=== PATIENT | female | born 1980 | race Caucasian/White ===

== ENCOUNTER → 2017-10-14 17:03 | Outpatient (CLI) | payer OTHER, MEDICAID, SELFPAY ==
[2017-10-14 18:00] LABS: Alanine Aminotransferase 25 IU/L (9-52); Albumin 4.1 g/dL (3.5-5.0); Albumin Globulin Ratio 1.5 (1.0-2.8); Alkaline Phosphatase 38 U/L (38-126); Aspartate Aminotransferase 19 IU/L (14-36); BUN Creatinine Ratio 18.6 (6-22); Bilirubin Total 0.5 mg/dL (0.2-1.3); Blood Urea Nitrogen 13 mg/dL (7-17); Calcium 9.3 mg/dL (8.4-10.2); Carbon Dioxide 28 mmol/L (22-32); Chloride 103 mmol/L (98-107); Estimated Glomerular Filt Rate > 60.0 mL/min (>60); Globulin 2.8 g/dL (1.7-4.1); Glucose 92 mg/dL (70-100); HEMOLYSIS < 15 (0-50); Potassium 4.3 mmol/L (3.4-5.1); Sodium 140 mmol/L (137-145); Total Protein 6.9 g/dL (6.3-8.2)
[2017-10-14 18:17] LABS: Free T3, Triiodothyronine Free 3.36 pg/mL (2.77-5.27); Free T4, Direct Thyroxine 1.21 ng/dL (0.78-2.19)
[2017-10-14 18:31] LABS: Thyroid Stimulating Hormone 0.55 uIU/mL (0.47-4.68)
[2017-10-16 15:21] LABS: Thyroglobulin Level 4.6 ng/mL (2.8-40.9); Thyroid Peroxidase Antibodies 1 IU/mL (< 9)
[2017-10-16 15:26] LABS: C Peptide 4.72 ng/mL (0.80-3.85)
== END ==
PROVIDERS: Family Provider Nurse Practitioner; PCP Nurse Practitioner; Visit Provider Internal Medicine Endocrinology, Diabetes & Metabolism
DX: E03.9 Hypothyroidism, unspecified (principal)
CPT/HCPCS: 36415; 80053; 84432; 84439; 84443; 84481; 84681; 86376

== ENCOUNTER → 2018-01-26 12:18 | Outpatient (CLI) | payer OTHER, MEDICAID, SELFPAY ==
[2018-01-26 13:38] LABS: Free T3, Triiodothyronine Free 3.03 pg/mL (2.77-5.27); T4 Total Thyroxine 8.75 ug/dL (5.5-11.0)
== END ==
PROVIDERS: Family Provider Nurse Practitioner; PCP Nurse Practitioner; Visit Provider Internal Medicine Endocrinology, Diabetes & Metabolism
DX: E03.9 Hypothyroidism, unspecified (principal)
CPT/HCPCS: 36415; 84436; 84443; 84481

== ENCOUNTER → 2018-02-01 12:00 | Outpatient (CLI) | payer OTHER, MEDICAID, SELFPAY ==
[2018-02-01 13:51] LABS: Alanine Aminotransferase 26 IU/L (9-52); Albumin 4.1 g/dL (3.5-5.0); Albumin Globulin Ratio 1.6 (1.0-2.8); Alkaline Phosphatase 38 U/L (38-126); Aspartate Aminotransferase 24 IU/L (14-36); Bilirubin Total 0.3 mg/dL (0.2-1.3); Blood Urea Nitrogen 21 mg/dL (7-17); Calcium 9.5 mg/dL (8.4-10.2); Carbon Dioxide 26 mmol/L (22-32); Chloride 104 mmol/L (98-107); Estimated Glomerular Filt Rate > 60.0 mL/min (>60); Globulin 2.6 g/dL (1.7-4.1); Glucose 93 mg/dL (70-100); HEMOLYSIS < 15 (0-50); Potassium 4.7 mmol/L (3.4-5.1); Sodium 141 mmol/L (137-145); Total Protein 6.7 g/dL (6.3-8.2)
[2018-02-01 14:04] LABS: Free T3, Triiodothyronine Free 2.93 pg/mL (2.77-5.27); Free T4, Direct Thyroxine 1.31 ng/dL (0.78-2.19)
[2018-02-01 17:13] LABS: Hemoglobin A1C% w Est Avg Glu 5.1 % (4.0-6.0)
[2018-02-03 15:53] LABS: C Peptide 2.17 ng/mL (0.80-3.85)
== END ==
PROVIDERS: PCP Nurse Practitioner; Visit Provider Internal Medicine Endocrinology, Diabetes & Metabolism
DX: E03.9 Hypothyroidism, unspecified (principal); E66.9 Obesity, unspecified
CPT/HCPCS: 36415; 80053; 83036; 84439; 84443; 84481; 84681

== ENCOUNTER → 2018-06-10 11:37 | Outpatient (CLI) | payer OTHER, MEDICAID, SELFPAY ==
[2018-06-10 12:06] LABS: Hemoglobin A1C% w Est Avg Glu 5.2 % (4.0-6.0)
[2018-06-10 12:09] LABS: Alanine Aminotransferase 27 IU/L (9-52); Albumin 4.4 g/dL (3.5-5.0); Albumin Globulin Ratio 1.4 (1.0-2.8); Alkaline Phosphatase 44 U/L (38-126); Aspartate Aminotransferase 23 IU/L (14-36); BUN Creatinine Ratio 26.7 (6-22); Bilirubin Total 0.4 mg/dL (0.2-1.3); Blood Urea Nitrogen 16 mg/dL (7-17); Calcium 8.9 mg/dL (8.4-10.2); Carbon Dioxide 27 mmol/L (22-32); Chloride 104 mmol/L (98-107); Estimated Glomerular Filt Rate > 60.0 mL/min (>60); Globulin 3.1 g/dL (1.7-4.1); Glucose 91 mg/dL (70-100); HEMOLYSIS < 15 (0-50); Potassium 4.3 mmol/L (3.4-5.1); Sodium 139 mmol/L (137-145); Total Protein 7.5 g/dL (6.3-8.2)
[2018-06-10 12:36] LABS: Free T3, Triiodothyronine Free 3.07 pg/mL (2.77-5.27); Free T4, Direct Thyroxine 1.05 ng/dL (0.78-2.19)
[2018-06-10 12:50] LABS: Thyroid Stimulating Hormone 3.06 uIU/mL (0.47-4.68)
[2018-06-12 19:37] LABS: C Peptide 1.61 ng/mL (0.80-3.85)
== END ==
PROVIDERS: PCP Nurse Practitioner; Visit Provider Internal Medicine Endocrinology, Diabetes & Metabolism
DX: E03.9 Hypothyroidism, unspecified (principal); E66.9 Obesity, unspecified
CPT/HCPCS: 36415; 80053; 83036; 84439; 84443; 84481; 84681

== ENCOUNTER → 2018-08-11 11:42 | Outpatient (CLI) | payer OTHER, MEDICAID, SELFPAY ==
[2018-08-11 13:59] LABS: Free T3, Triiodothyronine Free 3.24 pg/mL (2.77-5.27); Free T4, Direct Thyroxine 0.88 ng/dL (0.78-2.19)
[2018-08-11 14:12] LABS: Thyroid Stimulating Hormone 1.89 uIU/mL (0.47-4.68)
== END ==
PROVIDERS: PCP Nurse Practitioner; Visit Provider Internal Medicine Endocrinology, Diabetes & Metabolism
DX: E03.9 Hypothyroidism, unspecified (principal)
CPT/HCPCS: 36415; 84439; 84443; 84481

== ENCOUNTER → 2018-09-30 09:32 | Outpatient (CLI) | payer OTHER, MEDICAID, SELFPAY ==
[2018-09-30 11:24] LABS: Free T3, Triiodothyronine Free 3.27 pg/mL (2.77-5.27); Free T4, Direct Thyroxine 0.96 ng/dL (0.78-2.19)
[2018-09-30 11:38] LABS: Thyroid Stimulating Hormone 1.82 uIU/mL (0.47-4.68)
[2018-10-03 22:33] LABS: Triiodothyronine T3 Reverse 16 ng/dL (8-25)
== END ==
PROVIDERS: PCP Nurse Practitioner; Visit Provider Nurse Practitioner Family
DX: E05.90 Thyrotoxicosis, unspecified without thyrotoxic crisis or storm (principal)
CPT/HCPCS: 36415; 84439; 84443; 84481; 84482

== ENCOUNTER → 2018-11-23 08:02 | Outpatient (CLI) | payer OTHER, MEDICAID, SELFPAY ==
[2018-11-23 09:48] LABS: Free T3, Triiodothyronine Free 4.21 pg/mL (2.77-5.27); Free T4, Direct Thyroxine 0.62 ng/dL (0.78-2.19)
[2018-11-23 10:02] LABS: Thyroid Stimulating Hormone 0.45 uIU/mL (0.47-4.68)
[2018-11-28 15:00] LABS: Triiodothyronine T3 Reverse 10 ng/dL (8-25)
== END ==
PROVIDERS: PCP Nurse Practitioner; Visit Provider Nurse Practitioner Family
DX: E03.9 Hypothyroidism, unspecified (principal)
CPT/HCPCS: 36415; 84439; 84443; 84481; 84482

== ENCOUNTER → 2019-01-14 10:57 | Outpatient (CLI) | payer OTHER, MEDICAID, SELFPAY ==
[2019-01-14 12:23] LABS: Free T3, Triiodothyronine Free 4.48 pg/mL (2.77-5.27); Free T4, Direct Thyroxine 1.05 ng/dL (0.78-2.19)
[2019-01-14 12:37] LABS: Thyroid Stimulating Hormone < 0.02 uIU/mL (0.47-4.68)
[2019-01-19 14:26] LABS: Triiodothyronine T3 Reverse 14 ng/dL (8-25)
== END ==
PROVIDERS: PCP Nurse Practitioner; Visit Provider Nurse Practitioner Family
DX: E03.9 Hypothyroidism, unspecified (principal)
CPT/HCPCS: 36415; 84439; 84443; 84481; 84482

== ENCOUNTER → 2019-05-30 13:05 | Outpatient (CLI) | payer OTHER, MEDICAID, SELFPAY ==
[2019-05-30 13:42] LABS: Glucose 104 mg/dL (70-100)
[2019-05-30 14:34] LABS: Free T3, Triiodothyronine Free 2.98 pg/mL (2.77-5.27); Free T4, Direct Thyroxine 0.55 ng/dL (0.78-2.19)
[2019-05-30 14:48] LABS: Thyroid Stimulating Hormone 0.81 uIU/mL (0.47-4.68)
== END ==
PROVIDERS: PCP Nurse Practitioner Family; Visit Provider Nurse Practitioner Family
DX: R73.09 Other abnormal glucose (principal)
CPT/HCPCS: 36415; 82947; 84439; 84443; 84481

== ENCOUNTER → 2019-08-17 11:33 | Outpatient (CLI) | payer OTHER, MEDICAID, SELFPAY ==
[2019-08-17 13:21] LABS: Hemoglobin A1C% w Est Avg Glu 5.7 % (4.0-6.0)
[2019-08-17 13:26] LABS: Free T3, Triiodothyronine Free 2.86 pg/mL (2.77-5.27); Free T4, Direct Thyroxine 0.49 ng/dL (0.78-2.19)
[2019-08-17 16:26] LABS: Ferritin 79 ng/mL (6-137)
[2019-08-20 13:06] LABS: Triiodothyronine T3 Reverse 11.5 ng/dL (9.2-24.1)
== END ==
PROVIDERS: PCP Nurse Practitioner Family; Referring Provider Nurse Practitioner Family; Visit Provider Nurse Practitioner Family
DX: E03.9 Hypothyroidism, unspecified (principal); R73.09 Other abnormal glucose
CPT/HCPCS: 36415; 82728; 83036; 84439; 84443; 84481; 84482

== ENCOUNTER → 2019-10-27 12:11 | Outpatient (CLI) | payer OTHER, MEDICAID, SELFPAY ==
[2019-10-27 13:45] LABS: Hemoglobin A1C% w Est Avg Glu 5.6 % (4.0-6.0)
[2019-10-27 13:59] LABS: Free T3, Triiodothyronine Free 2.97 pg/mL (2.77-5.27)
[2019-10-27 14:12] LABS: Thyroid Stimulating Hormone 1.29 uIU/mL (0.47-4.68)
[2019-10-27 14:18] LABS: Ferritin 98 ng/mL (6-137)
[2019-11-01 01:39] LABS: Triiodothyronine T3 Reverse 7.4 ng/dL (9.2-24.1)
== END ==
PROVIDERS: PCP Nurse Practitioner Family; Referring Provider Naturopath; Visit Provider Naturopath
DX: E03.9 Hypothyroidism, unspecified (principal); R73.09 Other abnormal glucose; R79.0 Abnormal level of blood mineral
CPT/HCPCS: 36415; 82728; 83036; 84439; 84443; 84481; 84482

== ENCOUNTER → 2019-12-25 09:24 | Outpatient (CLI) | payer OTHER, MEDICAID, SELFPAY ==
[2019-12-26 06:49] LABS: Thyroid Peroxidase Antibodies <9 IU/mL (0-34)
[2019-12-26 18:39] LABS: Anti Thyroglobulin Antibody <1.0 IU/mL (0.0-0.9)
== END ==
PROVIDERS: PCP Naturopath; Referring Provider Naturopath; Visit Provider Naturopath
DX: E07.9 Disorder of thyroid, unspecified (principal)
CPT/HCPCS: 36415; 86376; 86800; 86900; 86901

== ENCOUNTER → 2020-08-09 10:55 | Outpatient (CLI) | payer OTHER, MEDICAID, SELFPAY ==
[2020-08-09 12:56] LABS: Add Manual Diff / Slide Review NO; Basophils Absolute Auto 0 /uL (0-100); Basophils Percent Auto 0.3 % (0-2); Eosinophils Absolute Auto 100 /uL (0-450); Eosinophils Percent Auto 1.9 % (2-4); Hematocrit 42.3 % (36-46); Lymphocytes Absolute Auto 1900 /uL (1100-4500); Lymphocytes Percent Auto 27.6 % (25-40); Mean Corpuscular HGB Conc 33.1 % (30-36); Mean Corpuscular Hemoglobin 28.6 PG (26-34); Mean Corpuscular Volume 86.5 fL (80-100); Monocytes Absolute Auto 400 /uL (0-900); Monocytes Percent Auto 6.3 % (3-14); Neutrophils Absolute Auto 4400 /uL (1500-7000); Neutrophils Percent Auto 63.9 % (50-75); Platelet Count 221 X10^3/uL (150-400); Red Blood Cell Count 4.89 X10^6/uL (4.0-5.2); Red Cell Distribution Width 13.8 % (11.6-14.8); White Blood Cell Count 6.9 X10^3/uL (4.5-11.0)
[2020-08-09 13:04] LABS: Alanine Aminotransferase 19 IU/L (<35); Albumin Globulin Ratio 1.3 (1.0-2.8); Alkaline Phosphatase 62 U/L (38-126); Aspartate Aminotransferase 26 IU/L (14-36); BUN Creatinine Ratio 17.8 (6-22); Bilirubin Total 0.4 mg/dL (0.2-1.3); Blood Urea Nitrogen 13 mg/dL (7-17); Calcium 9.3 mg/dL (8.4-10.2); Carbon Dioxide 26 mmol/L (22-32); Chloride 105 mmol/L (98-107); Estimated Glomerular Filt Rate > 60.0 mL/min (>60); Globulin 3.2 g/dL (1.7-4.1); Glucose 98 mg/dL (70-100); HEMOLYSIS < 15 (0-50); Sodium 136 mmol/L (137-145); Total Protein 7.2 g/dL (6.3-8.2)
[2020-08-09 13:35] LABS: Free T3, Triiodothyronine Free 2.95 pg/mL (2.77-5.27); Free T4, Direct Thyroxine 0.65 ng/dL (0.78-2.19)
[2020-08-09 13:48] LABS: Thyroid Stimulating Hormone 4.16 uIU/mL (0.47-4.68)
[2020-08-09 14:09] LABS: Vitamin B12 729 pg/mL (239-931)
[2020-08-24 18:52] LABS: Triiodothyronine T3 Reverse 14.5 ng/dL (9.2-24.1)
== END ==
PROVIDERS: PCP Naturopath; Referring Provider Naturopath; Visit Provider Naturopath
DX: E34.9 Endocrine disorder, unspecified (principal); F41.9 Anxiety disorder, unspecified; R51.0 Headache with orthostatic component, not elsewhere classified; N92.3 Ovulation bleeding
CPT/HCPCS: 36415; 80053; 82607; 82746; 84439; 84443; 84481; 84482; 85025

== ENCOUNTER → 2021-09-19 08:17 | Outpatient (CLI) | payer OTHER, MEDICAID, SELFPAY ==
--- NOTE | 2021-09-19 | DI.RAD.S_ITS ---
PROCEDURE: XR LUMBAR SPINE 2-3V INDICATIONS: LOW BACK PAIN TECHNIQUE: 3 views of the lumbar spine were acquired. COMPARISON: [facility], , L-SPINE MINIMUM 4 VIEWS, 05/10/2009, 12:51. FINDINGS: Bones: 4 [id number] vertebrae are present with sacralization of the L5 vertebral body and vestigial 12th ribs. There is normal bony alignment. No vertebral body compression fractures. No suspicious bony lesions. Mild degenerative disc changes noted throughout the lumbar spine. Mild L3-L4 and L4-L5 facet hypertrophy. Soft tissues: Overlying bowel gas pattern is normal. No suspicious soft tissue calcifications. IMPRESSION: 1. Multilevel degenerative disc disease. 2. Multilevel facet arthropathy. 3. No fracture. No acute osseous lesion. If symptoms and/or clinical suspicion for pathology persists, evaluation with MRI should be considered for further assessment. 4. Four lumbar type [id number] vertebral bodies. Dictated by: Gena Mcleod MD, PhD on 09/19/2021 at 10:35 Approved by: Gena Mcleod MD, PhD on 09/19/2021 at 10:37
== END ==
PROVIDERS: PCP Naturopath; Referring Provider Chiropractor; Visit Provider Chiropractor
DX: M51.36 Other intervertebral disc degeneration, lumbar region (principal); M47.816 Spondylosis without myelopathy or radiculopathy, lumbar region; M54.50 Low back pain, unspecified
CPT/HCPCS: 72100

== ENCOUNTER 2024-08-22 12:30 | Emergency (ER) | payer SELFPAY ==
[2024-08-22] VITALS (15 sets, daily range): BP systolic 102–156; BP diastolic 60–92; PULSE 67–100; RESP 16–20; TEMP 36.4; O2SAT 94–99; BMI 49.9
[2024-08-22 13:09] LABS: Add Manual Diff / Slide Review NO; Basophils Absolute Auto 0 /uL (0-100); Basophils Percent Auto 0.5 % (0-2); Eosinophils Absolute Auto 100 /uL (0-450); Eosinophils Percent Auto 1.5 % (2-4); Hematocrit 43.1 % (36-46); Hemoglobin 14.4 g/dL (12.0-16.0); Lymphocytes Absolute Auto 2200 /uL (1100-4500); Lymphocytes Percent Auto 26.7 % (25-40); Mean Corpuscular HGB Conc 33.4 % (30-36); Mean Corpuscular Volume 86.6 fL (80-100); Monocytes Absolute Auto 400 /uL (0-900); Neutrophils Absolute Auto 5400 /uL (1500-7000); Neutrophils Percent Auto 66.3 % (50-75); Platelet Count 228 X10^3/uL (150-400); Red Blood Cell Count 4.97 X10^6/uL (4.0-5.2); Red Cell Distribution Width 14.3 % (11.6-14.8); White Blood Cell Count 8.1 X10^3/uL (4.5-11.0)
[2024-08-22 13:22] LABS: Alanine Aminotransferase 27 IU/L (<35); Albumin 4.1 g/dL (3.5-5.0); Albumin Globulin Ratio 1.3 (1.0-2.8); Alkaline Phosphatase 64 U/L (38-126); Aspartate Aminotransferase 30 IU/L (14-36); BUN Creatinine Ratio 22.5 (6-22); Bilirubin Total 0.4 mg/dL (0.2-1.3); Blood Urea Nitrogen 16 mg/dL (7-17); Calcium 8.8 mg/dL (8.4-10.2); Carbon Dioxide 24 mmol/L (22-32); Chloride 105 mmol/L (98-107); Estimated Glomerular Filt Rate > 60 mL/min (>60); Globulin 3.1 g/dL (1.7-4.1); Glucose 124 mg/dL (70-99); HEMOLYSIS 19 (0-50); Potassium 3.9 mmol/L (3.4-5.1); Sodium 136 mmol/L (137-145); Total Protein 7.2 g/dL (6.3-8.2)
--- NOTE | 2024-08-22 16:40 | ED.NEUROSD ---
HPI - Neuro Symptoms/Deficit General Chief Complaint: Neuro Symptoms/Deficit Stated Complaint: off balance, pressure left side of face Time Seen by Provider: 08/22/24 16:40 Source: patient, RN notes reviewed and old records reviewed Mode of arrival: Ambulatory Limitations: no limitations History of Present Illness HPI Narrative: 44-year-old female no reported medical issues states she has felt sort of off balance since yesterday evening. [place] a little bit of pressure on the left side of her face but not any numbness. Denies fevers. Denies headache. Denies vision changes. No sudden hearing changes. Notes her ear feels a little funny. No recent upper respiratory infection. No vision changes. Denies any chest pain or shortness of breath. No nausea or vomiting. No other GI or urinary symptoms. No numbness, tingling or weakness. No difficulty with ambulation. Patient states she can walk normally. Denies any other new neurologic changes. Has not had similar symptoms in the past. Patient states no daily medications. Has had a prior hysterectomy. No tobacco, no regular alcohol, no recreational drugs. She was accompanied by her mother. She does not currently have a primary care provider. On Anticoagulants: No Related Data Previous Rx's Medication Instructions Recorded oxycodone-acetaminophen 10 mg-325 1 tab PO SEE INSTRUCTIONS PRN #30 05/11/17 mg tablet (Percocet) tabs hydrocodone 5 mg-acetaminophen 325 1 - 2 tab PO Q4HP PRN #60 tabs 05/14/17 mg tablet Allergies Allergy/AdvReac Type Severity Reaction Status Date / Time No Known Drug Allergies Allergy Verified 08/22/24 12:34 Review of Systems Review of Systems ROS Unobtainable: All systems reviewed & are unremarkable except as noted in HPI and below Hematologic/Lymphatic On Anticoagulants: No Patient History Surgical History Status post surgery (05/17/17) Social History Smoking Status: Never smoker Smoking Status: Never smoker Exam Narrative Exam Narrative: GEN: well nourished, well appearing female, alert and oriented x 3, patient appears to be in no acute distress. HEENT: Atraumatic, pupils are equal round reactive to light, extraocular movements are intact, no nystagmus, nares are clear, TMs are intact, slightly retracted, scant amount of fluid bilaterally, canals are clear, there is no conjunctival pallor. Throat is clear without any exudates, erythema, tonsillar enlargement or uvular deviation, facial droop. HEART: Regular rate and rhythm without murmur, clicks, rubs. Pulses are equal in upper and lower extremities LUNGS:Lungs clear to auscultation, no wheezes, rales, crackles, chest moves symmetrically ABD:bowel sounds normal, soft, non-tender, no guarding, rebound, rigidity, no masses noted, no hepatosplenomegaly MSCL: Non-tender, no muscle atrophy, muscles strength 5/5 upper and lower extremities, full range of motion, patient ambulated in department with steady, normal gait. NEURO:CN 2-12 intact, sensation normal, finger nose finger test normal, heel haynes test normal. Initial Vital Signs Initial Vital Signs: Vital Signs Temperature 97.6 F 08/22/24 12:35 Pulse Rate 92 H 08/22/24 12:35 Respiratory Rate 16 08/22/24 12:35 Blood Pressure 156/88 H 08/22/24 12:35 Pulse Oximetry 97 08/22/24 12:35 Oxygen Delivery Method Room Air 08/22/24 12:35 Course Orders Ordered: ED Orders 08/22/24 12:55 CBC Auto Diff [Complete Blood Count AUTO DIFF] Stat Comprehensive Metabolic Panel Stat 08/22/24 17:23 CT head/brain wo con Stat Vital Signs Vital signs: Vital Signs - 8 hr 08/22/24 12:35 08/22/24 12:51 08/22/24 12:52 Temperature 97.6 F Pulse Rate 92 H 96 H Respiratory Rate 16 Blood Pressure 156/88 H 128/92 H Pulse Oximetry 97 96 97 Oxygen Delivery Method Room Air 08/22/24 13:00 08/22/24 13:30 08/22/24 14:00 Temperature Pulse Rate 85 81 87 Respiratory Rate 16 16 Blood Pressure 117/86 122/67 124/62 Pulse Oximetry 96 96 94 Oxygen Delivery Method 08/22/24 14:30 08/22/24 15:00 08/22/24 15:00 Temperature Pulse Rate 87 79 83 Respiratory Rate 20 20 Blood Pressure 102/68 128/60 Pulse Oximetry 96 97 Oxygen Delivery Method Room Air 08/22/24 15:30 08/22/24 16:00 08/22/24 16:00 Temperature Pulse Rate 74 67 81 Respiratory Rate 16 Blood Pressure 107/60 Pulse Oximetry 97 97 94 Oxygen Delivery Method Room Air 08/22/24 16:30 08/22/24 16:50 08/22/24 16:50 Temperature Pulse Rate 100 H 94 H Respiratory Rate Blood Pressure 125/76 Pulse Oximetry 96 Oxygen Delivery Method Room Air 08/22/24 17:00 08/22/24 17:30 Temperature Pulse Rate 83 87 Respiratory Rate 16 Blood Pressure Pulse Oximetry 95 97 Oxygen Delivery Method MDM - Neuro Symptoms/Deficit Lab Data 08/22/24 12:55 08/22/24 12:55 Labs: Lab Results 08/22/24 Range/Units 12:55 WBC 8.1 (4.5-11.0) X10^3/uL RBC 4.97 (4.0-5.2) X10^6/uL Hgb 14.4 (12.0-16.0) g/dL Hct 43.1 (36-46) % MCV 86.6 (80-100) fL MCH 29.0 (26-34) PG MCHC 33.4 (30-36) % RDW 14.3 (11.6-14.8) % Plt Count 228 (150-400) X10^3/uL Neut % (Auto) 66.3 (50-75) % Lymph % (Auto) 26.7 (25-40) % Martin % (Auto) 5.0 (3-14) % Eos % (Auto) 1.5 L (2-4) % Baso % (Auto) 0.5 (0-2) % Neut # (Auto) 5400 (9372-7875) /uL Lymph # (Auto) 2200 (9278-4964) /uL Martin # (Auto) 400 (0-900) /uL Eos # (Auto) 100 (0-450) /uL Baso # (Auto) 0 (0-100) /uL Sodium 136 L (137-145) mmol/L Potassium 3.9 (3.4-5.1) mmol/L Chloride 105 (98-107) mmol/L Carbon Dioxide 24 (22-32) mmol/L BUN 16 (7-17) mg/dL Creatinine 0.71 (0.52-1.04) mg/dL Estimated GFR > 60 (>60) mL/min BUN/Creatinine Ratio 22.5 H (6-22) Glucose 124 H (70-99) mg/dL Calcium 8.8 (8.4-10.2) mg/dL Total Bilirubin 0.4 (0.2-1.3) mg/dL AST 30 (14-36) IU/L ALT 27 (<35) IU/L Alkaline Phosphatase 64 (38-126) U/L Total Protein 7.2 (6.3-8.2) g/dL Albumin 4.1 (3.5-5.0) g/dL Globulin 3.1 (1.7-4.1) g/dL Albumin/Globulin Ratio 1.3 (1.0-2.8) MDM Narrative Medical decision making narrative: 41-year-old female reported medical issues, patient describes feeling sort of off balance and some pressure in the left side of her face. Fevers or infectious changes, describes little bit of pressure behind her left eye and left face neuro exam his negative. Has scant amount of fluid on ear exam but no other findings of infection. Patient overall well-appearing reviewed her findings and examination from today labs do not show any major electrolyte changes such as hyponatremia. Discussed with the patient feel he would like to be low yield but discussed head CT. Patient was like to proceed did discuss risks versus benefits. Head CT shows no acute change. Discussed follow up. Labs show normal hemoglobin white count and platelets. Sodium is 136 electrolytes are appropriate glucose is 124 LFTs are negative. Head CT shows no acute change. Discharge Plan Departure Patient Disposition: Home Clinical Impression: Vertigo Activity Restrictions/Additional Instructions: Follow up for recheck if your symptoms are not improving. You can try bonivert or meclizine [id number] 1-2 tablets every 6 hours as needed. Please return for fevers, severe headaches, sudden vision changes, facial droop, new weakness, loss of sensation, inability or difficulty with moving extremities, sudden changes to gait or ambulation, persistent vomiting or other new or concerning changes. Prescriptions: No Action oxycodone-acetaminophen [Percocet] 10 MG/325 MG tablet 1 tab PO SEE INSTRUCTIONS PRNQty: 30 0RF hydrocodone-acetaminophen 5 MG/325 MG tablet 1 - 2 tab PO Q4HP PRNQty: 60 0RF Referrals: Lucy Ramirez ND [Primary Care Provider] - Stand Alone Forms: Patient Portal/API/Survey
--- NOTE | 2024-08-22 17:23 | DI.CT.S_ITS ---
PROCEDURE: CT HEAD/BRAIN WO CON INDICATIONS: off balance TECHNIQUE: Noncontrast 4.5 mm thick angled axial sections acquired from the foramen magnum to the vertex, with coronal and sagittal reformats. For radiation dose reduction, the following was used: automated exposure control, adjustment of mA and/or kV according to patient size. COMPARISON: None. FINDINGS: Image quality: Diagnostic. CSF spaces: Basal cisterns are patent. No extra-axial fluid collections. Ventricles are normal in size and shape. Brain: No midline shift. No intracranial mass effect or hemorrhage. Carrero-white matter interface is normal. Skull and face: Calvarium and visualized facial bones are intact, without suspicious lesions. Sinuses: Visualized sinuses and mastoids are clear. IMPRESSION: No acute intracranial pathology. Approved by: Behzad Davis M.D. on 08/22/2024 at 18:16
== END 2024-08-22 18:44 | disposition home or self-care (01) ==
PROVIDERS: Emergency Provider Emergency Medicine; PCP Naturopath
DX: R42 Dizziness and giddiness (principal)
CPT/HCPCS: 36415; 70450; 80053; 85025; 99283; 99284